=== PATIENT | female | born 1990 | race Caucasian/White ===

== ENCOUNTER → 2021-01-30 01:15 | Outpatient (CLI) | payer OTHER, SELFPAY ==
[2021-01-30 17:52] LABS: SARS-CoV-2 RNA PCR Negative
== END ==
PROVIDERS: Visit Provider Surgery
DX: Z01.812 Encounter for preprocedural laboratory examination (principal); Z20.822 Contact with and (suspected) exposure to COVID-19
CPT/HCPCS: C9803; U0003; U0005

== ENCOUNTER 2021-02-02 00:30 | Day surgery (SDC) | payer OTHER, SELFPAY ==
[2021-01-26 17:38] VITALS: BMI 24.4
[2021-02-02 10:52] VITALS: BP 134/85; PULSE 65; TEMP 36.2; O2SAT 100
[2021-02-02] MEDS: LACTATED RINGERS 1,000 ML 30 ML IV CONT ×2 (10:52→13:32)
--- NOTE | 2021-02-02 12:02 | WPDANESEPPF ---
Anes - Initial Pre Proc Eval Procedure: Operation Date: 02/02/21 12:30 Proposed Procedures p Excision Left Buttock Mass - Dariel Blanton DO Date/Time: 02/02/21 12:02 Surgeon: Dariel Blanton DO Pre Op Diagnosis: Left buttocks mass(8cm) Patient Data Age: 30 Gender: F Height: 1.78 m Weight: 80.1 kg Last Vital Signs Temp 36.2 C L 02/02/21 10:52 Pulse 65 02/02/21 10:52 BP 134/85 02/02/21 10:52 Pulse Ox 100 02/02/21 10:52 Allergies Allergy/AdvReac Type Severity Reaction Status Date / Time chlorpheniramine Allergy Mild hives Verified 02/02/21 10:36 [From Extendryl] dexchlorpheniramine Allergy Mild hives Verified 02/02/21 10:36 [From Extendryl] phenylephrine Allergy Mild hives Verified 02/02/21 10:36 [From Extendryl] scopolamine [From Extendryl] Allergy Mild hives Verified 02/02/21 10:36 Home Medications Medication Instructions Recorded Confirmed Type amlodipine 5 mg tablet 5 mg PO DAILY 12/30/20 01/26/21 History escitalopram oxalate 20 mg tablet 20 mg PO DAILY 12/30/20 01/26/21 History lactobacillus rhamnosus R0011 20 1 cell PO DAILY 12/30/20 01/26/21 History billion cell capsule multivitamin with minerals-folic 1 tablet PO DAILY 12/30/20 01/26/21 History acid 200 mcg chewable tablet Patient hx anesthesia problems: none Family hx anesthesia problems: none PMFSH Past Medical History Medical History (Updated 02/02/21 @ 12:03 by Ari Bush MD) Anxiety BMI 25.0-25.9,adult Depression Hypertension Localized swelling, mass and lump, trunk Surgical History Surgical History [place] teeth extracted Family History Family History Mother Autoimmune disorder Social History Social History Social History: Caffeine use: 1 cup coffee daily Smoking status: Never smoker Tobacco type: cigarettes Alcohol intake: current Drinks per week: 3 Alcohol use details: socially-beer or vodka Living arrangements: with family Additional living arrangements comments: with spouse 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 Questions were solicited and answers provided to the satisfaction of the patient/family/POA.
--- NOTE | 2021-02-02 12:08 | WPDHPUPDATE1 ---
History and Physical Update Update Date/Time: 02/02/21 12:08 History and Physical has been reviewed, including an updated exam of the patient. There are NO changes in the patient's condition. Risks, benefits, and alternatives have been discussed and questions answered. Patient agrees to proceed with procedure.
--- NOTE | 2021-02-02 12:08 | PM.IMHP ---
H&P: HPI History of Present Illness Date/Time: 02/02/21 12:08 Chief Complaint: left buttock mass Narrative: 30 yo woman presents for excision of left buttock mass. She denies any changes since last seen in office. Review of Systems Review of Systems: All systems reviewed & are unremarkable except as noted in HPI and below Constitutional: Constitutional: Denies chills, Denies fever(s), Denies headache(s) and Denies weight loss Eyes: Eyes: Denies change in vision ENT: Denies dizziness, Denies headache(s), Denies neck mass and Denies throat swelling Cardiovascular: Cardiovascular: Denies chest pain, Denies lightheadedness and Denies dyspnea Respiratory: Respiratory: Denies cough, Denies dyspnea and Denies wheezing Gastrointestinal: Gastrointestinal: Denies abdominal pain, Denies change in bowel habits, Denies nausea and Denies vomiting Genitourinary: Genitourinary: Denies hematuria and Denies dysuria Musculoskeletal: Musculoskeletal: Reports as per HPI Integumentary/Breasts: Skin/Breast: Reports as per HPI Neurologic: Denies dizziness and Denies headache(s) Allergic/Immunologic: Allergic/Immunologic: Denies throat swelling and Denies wheezing PMFSH Past Medical History Medical History (Updated 02/02/21 @ 12:03 by Ari Bush MD) Anxiety BMI 25.0-25.9,adult Depression Hypertension Localized swelling, mass and lump, trunk Surgical History Surgical History [place] teeth extracted Family History Family History Mother Autoimmune disorder Social History Social History Social History: Caffeine use: 1 cup coffee daily Smoking status: Never smoker Tobacco type: cigarettes Alcohol intake: current Drinks per week: 3 Alcohol use details: socially-beer or vodka Living arrangements: with family Additional living arrangements comments: with spouse Additional occupation/education comments: [employer] Spiritual care concerns: No Meds Home Medications and Allergies Home Medications Medication Instructions Recorded Confirmed Type amlodipine 5 mg tablet 5 mg PO DAILY 12/30/20 01/26/21 History escitalopram oxalate 20 mg tablet 20 mg PO DAILY 12/30/20 01/26/21 History lactobacillus rhamnosus R0011 20 1 cell PO DAILY 12/30/20 01/26/21 History billion cell capsule multivitamin with minerals-folic 1 tablet PO DAILY 12/30/20 01/26/21 History acid 200 mcg chewable tablet Allergies Allergy/AdvReac Type Severity Reaction Status Date / Time chlorpheniramine Allergy Mild hives Verified 02/02/21 10:36 [From Extendryl] dexchlorpheniramine Allergy Mild hives Verified 02/02/21 10:36 [From Extendryl] phenylephrine Allergy Mild hives Verified 02/02/21 10:36 [From Extendryl] scopolamine [From Extendryl] Allergy Mild hives Verified 02/02/21 10:36 Vital Signs Vital Signs - 24 hr 02/02/21 10:52 Temperature 36.2 C L Pulse Rate 65 Blood Pressure 134/85 Pulse Oximetry 100 Exam Const: General: no acute distress and alert Orientation/consciousness: patient oriented x3 HENMT: Head: normocephalic and atraumatic Ears: hearing grossly normal bilaterally General nose exam: Normal nares present Mouth: Yes Normal oral and palatal mucosa present Eyes: Periorbital: periorbital findings normal Sclera: sclerae normal EOM: EOMs intact bilaterally Neck: Neck: normal visual inspection, no lymphadenopathy and trachea midline Chest: Chest palpation & inspection: normal inspection of the chest Resp: Effort & Inspection: normal respiratory effort Auscultation: clear to auscultation bilaterally Cardio: Jugular venous distension: no JVD Rate: regular rate Rhythm: regular rhythm Heart sounds: S1 normal heart sound present and S2 normal heart sound present Peripheral pulses: Peripheral pulses 2
[2021-02-02 13:32] VITALS: BP 128/67; PULSE 62; RESP 14; O2SAT 96
--- NOTE | 2021-02-02 13:44 | W.PM.PROC2 ---
Procedure Note - Detailed Date of Procedure 02/02/21 Pre-op Diagnosis Left buttocks mass(8cm) Post-op Diagnosis same Procedure Performed 1. Excision 8cm left buttock subcutaneous mass 2. Layered closure Surgeon Dariel Blanton, DO Anesthesia MAC and local ( 1% lidocaine with epinephrine.) Indications This is a 30-year-old woman who presented with a mass on her left buttocks. She states that this has been present since shortly after a fall down stairs in 2019. She has some discomfort occasionally in the area especially with sitting. Discussions were made with the patient about treatment options and decision was made to proceed with excision of 8 cm left buttock mass. Findings Excision of the 8 cm left buttock mass was performed. There appeared to be some scar tissue within the subcutaneous space and of a possible small contained chronic seroma or hematoma. Just deep to this area there also appeared to be a possible lipoma that was causing some of the mass like appearance. The mass was completely excised and sent to the lab for pathology. The wound was then closed in layers. Three 0 Vicryl deep Yo's fascia layers were approximated followed by 3 0 Vicryl inverted interrupted dermal layer stitches. The skin was then approximated with 4 O Monocryl running subcuticular suture followed by Exofin glue. Description of Procedure Procedure as well as risks, benefits, and alternatives were discussed with the patient. Written consent was obtained and placed in chart prior to procedure. Patient was brought back to surgical suite. She was placed in right lateral decubitus position. Time-out was done to confirm patient and procedure. IV sedation was then administered by the Anesthesia Department. Her left buttock region was prepped and draped in sterile fashion using chlorhexidine prep. The area of the mass had previously been marked in the preop area. 1% lidocaine with epinephrine was infiltrated locally around the mass. An 8 cm transverse incision was then made directly over the mass using a 15 blade scalpel. Electrocautery was then used for hemostasis and for dissection down through the subcutaneous fat. There appeared to be a firm area of scar tissue just deep to Yo's fascia, and this was carefully excised using electrocautery. Just deep to this area and just superficial to the gluteus muscle, there appeared to be some fatty tissue consistent with a possible lipoma. This was excised using electrocautery. Once this area was excised, I carefully inspected around the wound bed and no other masses were identified. The wound bed was then inspected and hemostasis appeared adequate. Yo's fascia was then reapproximated using 3 0 Vicryl simple interrupted sutures. The deep dermis was reapproximated using 3 0 Vicryl inverted interrupted sutures. The skin was approximated using 4 Monocryl running subcuticular suture. Exofin glue was then applied on top. The patient was then awakened from anesthesia and transferred to recovery. Estimated Blood Loss -5.0 Pathology yes ( 8 cm left buttock mass) Complications No immediate complications Condition stable Disposition same day
[2021-02-02 14:02] VITALS: BP 130/70; PULSE 60; RESP 14
[2021-02-02] MEDS: oxyCODONE HCL (*CRX) 5 MG TAB IR PO (14:15)
[2021-02-02 14:20] VITALS: BP 134/76; PULSE 64; RESP 14
== END 2021-02-02 14:30 | disposition home or self-care (01) ==
PROVIDERS: Visit Provider Surgery
PROC: (CPT 21931; principal; 2021-02-02 12:30)
DX: D17.1 Benign lipomatous neoplasm of skin and subcutaneous tissue of trunk (principal); I10 Essential (primary) hypertension; F41.8 Other specified anxiety disorders
CPT/HCPCS: 21931; 88304; A9270; C9803; J2250; J2704; J3010; J7120; U0003; U0005